=== PATIENT | female | born 1980 | race Caucasian/White ===

== ENCOUNTER → 2017-04-12 17:51 | Outpatient (CLI) | payer BC, SELFPAY ==
[2017-04-12 19:57] LABS: Group B Strep DNA By PCR POSITIVE (Negative); Probe Check PASS
== END ==
PROVIDERS: Family Provider Family Medicine; PCP Family Medicine; Visit Provider Obstetrics & Gynecology
DX: O09.529 Supervision of elderly multigravida, unspecified trimester (principal); Z3A.00 Weeks of gestation of pregnancy not specified
CPT/HCPCS: 87653

== ENCOUNTER → 2017-04-19 17:06 | Outpatient (CLI) | payer BC, SELFPAY | PROVIDERS: Family Provider Family Medicine; PCP Family Medicine; Visit Provider Obstetrics & Gynecology | DX: O09.529 Supervision of elderly multigravida, unspecified trimester (principal); Z3A.00 Weeks of gestation of pregnancy not specified | CPT/HCPCS: 87077; 87086; 87088; 87186 ==

== ENCOUNTER 2017-04-20 16:00 | Outpatient (CLI) | payer BC, SELFPAY ==
[2017-04-20 16:06] VITALS: BMI 33.5
[2017-04-20 16:42] LABS: Hematocrit 32.3 % (37-47); Hemoglobin 10.2 g/dl (12.0-15.0); Mean Corp Hgb Conc 31.6 g/gl (32-36); Mean Corpuscular Hgb 27.4 pg (27.0-32.0); Mean Corpuscular Volume 86.8 fL (81-99); Mean Platelet Vol. 11.3 fl (6.2-12.0); Platelet Count 206 K/mm3 (150-450); RBC Distribution Width CV 14.9 % (11.6-14.6); RBC Distribution Width SD 47.5 fl (35.1-43.9); Red Blood Count 3.72 M/mm3 (4.2-5.4); White Blood Count 7.9 K/mm3 (4.4-11.0)
[2017-04-20 16:43] LABS: Scan Indicated on CBC? Y/N NO
[2017-04-20 17:18] LABS: Protein, Urine (Random) 14.4 mg/dL (<11.9); Protein:Creat Ratio 113 mg/g CRE (0-200)
[2017-04-20 17:29] LABS: LDH 130 U/L (84-246)
[2017-04-20 17:35] LABS: AST(SGOT) 17 U/L (15-37); Alanine Aminotransfer ALT/SGPT 14 U/L (13-56); Creatinine, Serum 0.64 mg/dL (0.55-1.02); EST Glomerular Filtration Rate 111 mL/min (>60); Est Glom Filt Rate - Afr Amer 134 mL/min (>60); Estimated Creatinine Clearance 98.59 ml/min
[2017-04-20] MEDS: Acetaminophen 500 MG Tablet 1000 MG PO (19:55)
[2017-04-20 20:45] VITALS: RESP 18
--- NOTE | 2017-04-21 07:17 | OB.TRI.NOTE ---
History of Present Illness Date of Service: 04/20/17 Was patient seen by the physician?: Yes Reason For Visit: INCREASED BLOOD PRESSURE Date of Service: 04/20/17 Gestational age: 38 History of Present Illness: 36 yo 38 weeks presents with headache blurry vision and right sided facial numbness. symptoms except the headache have resolved. Home Medications Medication Instructions Recorded 1 tab PO QDAY 02/13/17 vitamin,calcium,ifuikxjw-lwxl-qwkhn acid tablet Allergies No Known Allergies Allergy (Unverified 04/19/17 11:00) - Pertinent Past Medical History Pertinent Past Medical History: anxiety PSH: two previous c sections Physical Exam Vitals: Vital Signs Resp 18 04/20/17 20:45 General: Alert, Oriented x3 Lungs: Normal air movement Abdomen: Soft, Non Tender Estimated gestational size: Appropriate for gestational size NST - FHR Rate Baby A Baseline: 120 Variability:: Moderate Accelerations:: 15 x 15 Decelerations:: None NST Reactive:: Yes FHR Category:: Category I Uterine Activity:: no regular Impression/Plan 36 yo 38 weeks headache- normal bps, preeclampsia panel WNL dc home preeclampsia precautions fu in office
--- NOTE | 2017-04-21 07:20 | OB.TRI.HP_ITS ---
History of Present Illness Date of Service: 04/20/17 Was patient seen by the physician?: Yes Reason For Visit: INCREASED BLOOD PRESSURE Date of Service: 04/20/17 Gestational age: 38 History of Present Illness: 36 yo 38 weeks presents with headache blurry vision and right sided facial numbness. symptoms except the headache have resolved. Home Medications Medication Instructions Recorded 1 tab PO QDAY 02/13/17 vitamin,calcium,dkfyjone-slce-mdrkr acid tablet Allergies No Known Allergies Allergy (Unverified 04/19/17 11:00) - Pertinent Past Medical History Pertinent Past Medical History: anxiety PSH: two previous c sections Physical Exam Vitals: Vital Signs Resp 18 04/20/17 20:45 General: Alert, Oriented x3 Lungs: Normal air movement Abdomen: Soft, Non Tender Estimated gestational size: Appropriate for gestational size NST - FHR Rate Baby A Baseline: 120 Variability:: Moderate Accelerations:: 15 x 15 Decelerations:: None NST Reactive:: Yes FHR Category:: Category I Uterine Activity:: no regular Impression/Plan 36 yo 38 weeks headache- normal bps, preeclampsia panel WNL dc home preeclampsia precautions fu in office
== END 2017-04-20 20:45 | disposition home or self-care (01) ==
LOC: WPOUT 16:02 → WP 16:03
PROVIDERS: Family Provider Family Medicine; PCP Family Medicine; Visit Provider Obstetrics & Gynecology
DX: O09.523 Supervision of elderly multigravida, third trimester (principal); O34.219 Maternal care for unspecified type scar from previous cesarean delivery; R03.0 Elevated blood-pressure reading, without diagnosis of hypertension; H53.8 Other visual disturbances; Z3A.38 38 weeks gestation of pregnancy
CPT/HCPCS: 36415; 59025; 59050; 82565; 82570; 83615; 84156; 84450; 84460; 84550; 85027; 99218; G0378

== ENCOUNTER 2017-05-01 06:00 | Inpatient (IN) | payer OTHER, MEDICAID, SELFPAY ==
[2017-05-01] VITALS (18 sets, daily range): BP systolic 106–141; BP diastolic 46–81; PULSE 56–87; RESP 13–18; TEMP 36–36.7; O2SAT 94–99; BMI 34.1
--- NOTE | 2017-05-01 06:02 | PCM.HP.OB ---
- Problem List (1) Anxiety and depression Status: Acute Comment: Celexa (2) History of delivery, antepartum Status: Acute Comment: plans repeat and btl (3) History of group B Streptococcus (GBS) infection Status: Acute Comment: gbs positive urine (4) , high-risk, maternal age 35+ multigravida Status: Acute Comment: PRR VON 05/07/17 girl LYNETTE yohana estevez (5) Rh negative state in antepartum period Status: Acute Comment: rhogam as indicated History Date of Admission: 05/01/17 Final VON: 05/07/17 Gestational age: 39 Weeks and 1 Days History of this : 36 yo @ 39w1d presents for RLTCS and BTL. She had a history of 2 previous c sections. she has had an uncomplicated Pertinent Past Medical History: anxiety and depression PSH: 2 previous c sections Allergies No Known Allergies Allergy (Unverified 04/27/17 10:23) celexa pnv Smoking Status: Never smoker Alcohol: None Drug Use: none Number of Fetus(es): 1 - 140s Review of Systems Constitutional: Denies: Chills, Fever, Weight Change HEENT: Denies: Head Aches, Sinus Congestion, Sinus Drainage Cardiovascular: Denies: Chest Pain, Palpitations Respiratory: Denies: Cough, Shortness of breath at rest, Sputum production Gastrointestinal: Denies: Abdominal Pain, Nausea, Vomiting Genitourinary: Denies: Dysuria Musculoskeletal: Denies: Joint Pain, Joint Tenderness Skin: Denies: Rash, Wounds Neurological: Denies: Numbness, Tingling, Focal weakness Psychiatric: Denies: Anxiety, Depression, Homicidal Ideations, Suicidal Ideations Hematologic/ Lymphatic: Denies: Easy Bruising, Easy Bleeding Physical Exam General: Alert, Oriented x3, No apparent distress Cardiovascular: Regular rate Lungs: Normal air movement Abdomen: Soft, Non Tender, Gravid Extremities:: No edema Estimated gestational size: Appropriate for gestational size Presentation: Cephalic Assessment/Plan 36 yo @ 39w1d presents for RLTCS ad BTL plan RLTCS and BTL routine care Rh negative
[2017-05-01] MEDS: Lactated Ringers 1,000 ML 999 ML IV (06:20)
[2017-05-01 06:43] LABS: Absolute Lymphocyte Count 1.62 X10^3/ul (0.83-4.51); Absolute Neutrophil Count 5.7 X10^3/uL (2.0-7.7); Basophil# 0.03 X10^3/uL; Basophil% 0.4 % (0-1); Eosinophil# 0.11 X10^3/uL; Eosinophils% 1.3 % (0-5); Hematocrit 32.6 % (37-47); Hemoglobin 10.5 g/dl (12.0-15.0); Lymphocyte # 1.62 X10^3/ul (4.0); Lymphocyte % 19.4 % (19-41); Mean Corp Hgb Conc 32.2 g/gl (32-36); Mean Corpuscular Hgb 28.2 pg (27.0-32.0); Mean Corpuscular Volume 87.6 fL (81-99); Monocyte# 0.78 X10^3/uL; Monocyte% 9.4 % (0-10); Neutrophil # 5.73 X10^3/uL (2.7-7.7); Neutrophil % 68.8 % (47-70); Platelet Count 206 K/mm3 (150-450); RBC Distribution Width CV 14.9 % (11.6-14.6); RBC Distribution Width SD 46.5 fl (35.1-43.9); Red Blood Count 3.72 M/mm3 (4.2-5.4); White Blood Count 8.3 K/mm3 (4.4-11.0)
[2017-05-01 06:47] LABS: POSITIVE COUNT NO; POSITIVE DIFFERENTIAL NO; POSITIVE MORPHOLOGY NO
[2017-05-01] MEDS: Lactated Ringers 1,000 ML 150 ML IV (07:00)
[2017-05-01] MEDS: Sodium Citrate/Citric Acid 30 ML UDC PO (07:06)
[2017-05-01] MEDS: Cefazolin 2 GM in 0.9% Normal Saline 100 ML IV (07:18)
[2017-05-01] MEDS: Oxytocin 30 units/NS 500 ml 30 UNITS/500 ML IV.SOLN 167 UNITS IV (07:56)
--- NOTE | 2017-05-01 07:56 | FALS_PTH ---
PATIENT: RASHAD PIÑA LOC: [facility] U#:[id number] AGE/SX: 36/F ROOM: WP004 RE05/01/[address]: Dr. Letty Booker MD : 1980 BED: 1 DIS: 05/03/2017 SPEC #: [id number] RECD: 05/01/17 10:50 STATUS: PREETI VALARIE #: [id number] DUANE: 05/01/17 07:[address]: Letty Booker DEPT: SURGICAL PATHOLOGY RECD BY: Candido Clark ENTERED: 05/01/17 12:23 SP TYPE: FALL TUBES OTHR DR: Dr. Edgardo Dc MD Tissues: Fallopian tube Procedures: Surgery Specimen Level II HEADER OPERATION: Repeat with tubal ligation PRE-OP DIAGNOSIS: Desired sterilization TISSUE SUBMITTED: Fallopian tubes, right tube with suture MICROSCOPIC DIAGNOSIS Right and left fallopian tubes, partial salpingectomies: Two complete segments of fallopian tubes with no pathologic change. AM:rg 3/7/18 MICROSCOPIC DESCRIPTION Slides are reviewed. GROSS DESCRIPTION Received is one container labeled with the patient's name and designated stitch right. The specimen consists of two tubular pieces of harden soft tissue. The right tube is identified by a suture. The right tube is inked black and measures 2.5 cm in length and 0.8 cm in diameter. The left tube measures 2.5 cm in length and 0.8 cm in diameter. The entire specimen is submitted in two cassettes as follows: 1 - right fallopian tube, 2 - left fallopian tube. The specimen will be serially sectioned at the time of embedding. / INES:graciela 05/01/17 TC:4 CPT: 28637 x2
[2017-05-01] MEDS: DiphenhydrAMINE 25 MG Capsule PO (11:36)
[2017-05-01] MEDS: 0.9% Saline Lock 10 ML Syringe IV ×2 (12:08→13:20)
[2017-05-01] MEDS: Ondansetron 4 MG/2 ML Vial IV (12:08)
[2017-05-01] MEDS: Ketorolac 30 MG/ML Syringe IV ×2 (13:21→22:04)
[2017-05-01] MEDS: Lactated Ringers 1,000 ML 100 ML IV ×2 (17:51→19:05)
[2017-05-02] VITALS (8 sets, daily range): BP systolic 108–135; BP diastolic 51–75; PULSE 76–86; RESP 16–18; TEMP 36.4–36.8; O2SAT 95–99
[2017-05-02] MEDS: Ketorolac 30 MG/ML Syringe IV ×4 (04:19→22:19)
[2017-05-02] MEDS: 0.9% Saline Lock 10 ML Syringe IV ×3 (04:21→16:13)
[2017-05-02 05:54] LABS: Hematocrit 27.7 % (37-47); Hemoglobin 8.8 g/dl (12.0-15.0); Mean Corp Hgb Conc 31.8 g/gl (32-36); Mean Corpuscular Hgb 28.1 pg (27.0-32.0); Mean Corpuscular Volume 88.5 fL (81-99); Mean Platelet Vol. 11.1 fl (6.2-12.0); Platelet Count 155 K/mm3 (150-450); RBC Distribution Width CV 14.9 % (11.6-14.6); RBC Distribution Width SD 47.1 fl (35.1-43.9); Red Blood Count 3.13 M/mm3 (4.2-5.4); White Blood Count 8.1 K/mm3 (4.4-11.0)
[2017-05-02 06:16] LABS: Scan Indicated on CBC? Y/N NO
--- NOTE | 2017-05-02 08:55 | OP.PCM_ITS ---
Problem List (1) Anxiety and depression Status: Acute Comment: Celexa (2) History of delivery, antepartum Status: Acute Comment: plans repeat and btl (3) History of group B Streptococcus (GBS) infection Status: Acute Comment: gbs positive urine (4) , high-risk, maternal age 35+ multigravida Status: Acute Comment: PRR VON 05/07/17 girl yohana Lieberman (5) Rh negative state in antepartum period Status: Acute Comment: rhogam as indicated Report of Operation Date of Procedure: 05/01/17 Pre-Operative Diagnosis: previous c section x 2 Post-Operative Diagnosis: same Surgery/Procedure Performed:: repeat low transverse csetion and bilateral tuba lligation via park[place] method Description of Surgical Findings:: normal uterus tubes ovaries staffing program manager: Angeline Reynaga Type of Anesthesia:: Spinal Specimen's removed: tubes Drains: butterfield Estimated Blood Loss (mL): 900 Fluids Replaced: crystalloid Description of Procedure: The patient is a at 39 weeks 1 day presented for repeat . Spinal anesthesia was placed without difficulty. Butterfield catheter was placed. The patient was placed in the dorsal supine position with leftward tilt. Patient was prepped and draped in the normal sterile fashion. Pfannenstiel skin incision was made with the scalpel and carried through to the underlying layer of fascia with the scalpel. Fascia was nicked in the midline and the incision extended laterally. The rectus bellies were dissected off superiorly and inferiorly with out complication both sharply and bluntly. The peritoneum was entered digitally. The incision was stretched and a low transverse uterine incision was made with the scalpel. The infant's head was delivered atraumatically followed by the anterior and posterior shoulders without complication the rest of the infant delivered. The cord was clamped and cut and the infant was handed off to awaiting nurse. The placenta was delivered spontaneously immediately following and was noted to be intact and have a three- vessel cord. The uterus was cleared of all clots and debris, and the incision was closed in a single layer closure using #1 Monocryl. The gutters were cleared of all clots and debris. The ovaries and fallopian tubes were noted to be within normal limits. Mid interstitial portion of the fallopian tube was elevated and 1 a hole in the mesosalpinx was made and the fallopian tube was tied off proximally and distally with chromic suture. The communicating portion of the fallopian tube was removed and excellent hemostasis was noted. The peritoneum was closed with 3-0 Monocryl in a running fashion. Fascia was closed with 0 PDS in a running fashion. Subcutaneous tissue was copiously irrigated and the skin was closed with 3-0 Monocryl in a subcuticular fashion. Steri-Strips and Mepilex dressing were applied without complication. Patient was taken to recovery in stable condition. Grafts/Implants Used: none - Complications none - Admit VTE Documentation VTE Present on Admission: No
[2017-05-02] MEDS: oxyCODONE 5 MG Tablet PO ×3 (09:03→20:10)
[2017-05-02] MEDS: Senna/Docusate Sodium 1 Tablet PO (09:03)
[2017-05-02 15:48] LABS: Pathology Specimen OB SEE PATHOLOGY REPORT
[2017-05-03 02:15] VITALS: BP 134/71; PULSE 64; RESP 16; TEMP 36.7; O2SAT 98
[2017-05-03] MEDS: Ketorolac 30 MG/ML Syringe IV ×2 (04:11→10:08)
[2017-05-03 08:36] VITALS: BP 130/77; PULSE 73; RESP 16; TEMP 36.1
[2017-05-03] MEDS: 0.9% Saline Lock 10 ML Syringe IV (10:06)
[2017-05-03] MEDS: oxyCODONE 5 MG Tablet PO (10:07)
--- NOTE | 2017-05-03 10:12 | DCINST_ITS ---
Discharge Diet: No Restrictions Discharge Activity: May Not Drive - for 2 weeks, May not drive while taking narcotic pain medications., May Shower, May Take a Tub Bath - in 7 days May resume sexual activity in: 4-6 weeks Lifting Restrictions: 20 pounds Additional Activity Instructions:: Nothing in the vagina for 4-6 weeks. You may return to work/school in 6 weeks. Call your doctor if your incision/area has: Continuous Slow Oozing, Sudden Increased Bleeding, Increased Pain/ Swelling, Increased Redness, Foul Smelling Discharge Call your doctor if you observe: Fever of 101 or Higher, Using more than one pad per hour - for 2 hours Suture Line Care: Avoid Pulling/Pushing, Avoid Pinching/Bending Cleanse incision/area with: Keep Dressing Clean & Dry Additional Instructions: If you experience any of the following, contact your healthcare provider. * Bleeding that soaks a pad every hour for 2 hours * Fever 100.4 or higher * Unrelieved incision or abdominal pain * Swelling, redness, discharge or bleeding from your incision or episiotomy site * Your incision begins to separate * Problems urinating (including inability to urinate or burning while urinating) . * Visual changes * Severe headache * Flu-like symptoms * Pain or redness in one of both of your breasts * Pain, warmth, tenderness or swelling in your legs, especially the calf area * Frequent nausea and vomiting * Symptoms of depression or anxiety If you experience any of the following, call 911 or go to the nearest Emergency Room. * Chest pain * Problems breathing * Seizure activity * Partial or complete paralysis of a body part, slurred speech, weakness or drooping of the face, or a sudden inability to walk or hold your balance Allergies/Adverse Reactions: Allergies No Known Allergies Allergy (Unverified 04/27/17 10:23) Medications to take at Discharge vitamin,calcium,amryilvf-rwjf-upwny acid tablet 1 tab PO QDAY 02/13/17 Oxycodone HCl/Acetaminophen [Percocet 5-325] 2 tablet PO Q4H PRN PRN 7 Days #28 tablet 05/03/17 The following prescriptions were given: Oxycodone HCl/Acetaminophen [Percocet 5-325] 2 tablet PO Q4H PRN PRN 7 Days #28 tablet PRN Reason: Moderate-Severe pain Follow-Up: Call to make an appointment with your doctor for an incision check in 1-2 weeks. You will also need a 6 week post- follow up appointment. Please Follow Up With: Letty Booker MD - Call to make an appointment for an incision check in 1-2 [phone] When: You will need a post- check in 6 weeks. Primary Care Physician: Edgardo Dc MD [Primary Care Provider] -
--- NOTE | 2017-05-04 03:35 | PCM.PN.OB ---
Subjective: late entry- seen 05/02/17 at 8 am doing well pain controlled some nausea last night - Physical Exam General: Alert, Oriented x3 Vital Signs Temp Pulse Resp BP Pulse Ox 97.0 F L 73 16 130/77 H 98 05/03/17 08:36 05/03/17 08:36 05/03/17 08:36 05/03/17 08:36 05/03/17 02:15 Oxygen Delivery Method Room Air Weight: 192 lb 9.6 oz Body Mass Index (BMI) 34.1 Intake and Output for Last 24 Hours 05/02/17 05/03/17 05/04/17 23:59 23:59 23:59 Intake Total 1992 Output Total 1300 / 1300 Balance 693 / 693 Assessment/Plan s/p RLTCS and BTL routine care pp
--- NOTE | 2017-05-04 03:37 | PCM.PN.OB ---
Subjective: late entry- seen 05/03/17 at 9 am doing well pain controlled no CP SOB N V - Physical Exam General: Alert, Oriented x3 Vital Signs Temp Pulse Resp BP Pulse Ox 97.0 F L 73 16 130/77 H 98 05/03/17 08:36 05/03/17 08:36 05/03/17 08:36 05/03/17 08:36 05/03/17 02:15 Oxygen Delivery Method Room Air Weight: 192 lb 9.6 oz Body Mass Index (BMI) 34.1 Intake and Output for Last 24 Hours 05/02/17 05/03/17 05/04/17 23:59 23:59 23:59 Intake Total 1992 Output Total 1300 / 1300 Balance 693 / 693 Assessment/Plan s/p RLTCS and BTL routine care pp
== END 2017-05-03 12:35 | disposition home or self-care (01) | DRG 765 ==
PROVIDERS: Admitting Provider Obstetrics & Gynecology; Family Provider Family Medicine; PCP Family Medicine; Visit Provider Obstetrics & Gynecology
DX: O99.344 Other mental disorders complicating childbirth (principal); O98.82 Other maternal infectious and parasitic diseases complicating childbirth; O34.211 Maternal care for low transverse scar from previous cesarean delivery; B95.1 Streptococcus, group B, as the cause of diseases classified elsewhere; F41.9 Anxiety disorder, unspecified; F32.9 Major depressive disorder, single episode, unspecified; Z3A.39 39 weeks gestation of pregnancy; Z37.0 Single live birth; O09.523 Supervision of elderly multigravida, third trimester; Z87.891 Personal history of nicotine dependence
CPT/HCPCS: 85025; 85027; 85461; 86850; 86900; 88302; 90384; 94762; 99218; J7120; A4216; G0378; J2405; J2790

== ENCOUNTER → 2017-11-27 10:33 | Outpatient (CLI) | payer OTHER, MEDICAID, SELFPAY ==
[2017-11-27 12:07] LABS: Absolute Lymphocyte Count 1.42 X10^3/ul (0.83-4.51); Basophil# 0.03 X10^3/uL; Basophil% 0.5 % (0-1); Eosinophil# 0.09 X10^3/uL; Eosinophils% 1.5 % (0-5); Hemoglobin 11.9 g/dl (12.0-15.0); Lymphocyte # 1.42 X10^3/ul (4.0); Lymphocyte % 23.9 % (19-41); Mean Corp Hgb Conc 30.5 g/gl (32-36); Mean Corpuscular Hgb 25.9 pg (27.0-32.0); Mean Platelet Vol. 10.3 fl (6.2-12.0); Monocyte# 0.43 X10^3/uL; Monocyte% 7.3 % (0-10); Neutrophil # 3.95 X10^3/uL (2.7-7.7); Neutrophil % 66.6 % (47-70); Platelet Count 323 K/mm3 (150-450); RBC Distribution Width CV 15.4 % (11.6-14.6); RBC Distribution Width SD 47.5 fl (35.1-43.9); Red Blood Count 4.59 M/mm3 (4.2-5.4); White Blood Count 5.9 K/mm3 (4.4-11.0)
[2017-11-27 12:10] LABS: POSITIVE COUNT NO; POSITIVE DIFFERENTIAL NO; POSITIVE MORPHOLOGY NO
[2017-11-27 12:33] LABS: Vitamin B12 570 pg/mL (211-911)
[2017-11-27 12:43] LABS: Ferritin 10 ng/mL (8-252); Iron 48 ug/dL (50-170); Thyroid Stim Hormone (TSH) 1.96 uIU/mL (0.358-3.74)
== END ==
PROVIDERS: Family Provider Family Medicine; PCP Family Medicine; Visit Provider Family Medicine
DX: R53.83 Other fatigue (principal); D64.9 Anemia, unspecified; L60.8 Other nail disorders
CPT/HCPCS: 36415; 82607; 82728; 83540; 84439; 84443; 85025

== ENCOUNTER 2018-01-04 06:02 | Emergency (ER) | payer OTHER, MEDICAID, SELFPAY ==
[2018-01-04 06:04] VITALS: BP 105/80; PULSE 72; RESP 16; TEMP 36.8; O2SAT 97; BMI 31.5
--- NOTE | 2018-01-04 06:15 | ED.VISSUMM ---
- ER Visit Summary Date of Service: 01/04/18 Chief Complaint: Back pain History of Present Illness: The patient is a 37 F with back pain since yesterday. It is worse when she turns twists or bends over. She is about to start her menstrual cycle and she has her usual abdominal cramping, her back pain is different. She denies any urinary symptoms. She had a tubal ligation and denies . She has no fever or chills. She has no radiation of the pain to her legs. No difficulty ambulating. Physical Examination: She does not appear in significant distress. She is lying comfortable on the bed Heart is regular lungs are clear abdomen is soft with minimal suprapubic tenderness. No guarding or rebound. Back examination reveals reproducible paraspinal tenderness which is worse with twisting and turning. She has normal Achilles and patellar reflexes. She has normal plantar flexion of both feet and dorsiflexion of both great toes. Emergency Department Course and Treatment: Urinalysis was done and unremarkable. Patient was treated with Toradol and Norflex. I do believe this is musculoskeletal, she has abdominal cramping but this is normal for this time of the month for her. She is benign abdomen and her back pain is quite reproducible. I will treat her symptomatically. Disposition: Discharge stable condition Impression: Lumbar strain This note was generated with [employer] dictation software. It may contain incorrect words, spelling, and punctuation that were not noted in review of the chart prior to signing ED Disposition - Plan for ED Patient: Disposition: Home or Assisted Living Chief Complaint: Flank Pain Instructions: Relieving Back Pain Prescriptions: Hydrocodone Bitart/Apap 5-325 [[place] 5MG-325MG] 1 tab PO Q4H PRN PRN 2 Days #10 tab PRN Reason: Pain Referrals: Edgardo Dc MD [Primary Care Provider] - 5-7 Days
--- NOTE | 2018-01-04 06:19 | ED.DCSUM_ITS ---
- ER Visit Summary Date of Service: 01/04/18 Chief Complaint: Back pain History of Present Illness: The patient is a 37 F with back pain since yesterday. It is worse when she turns twists or bends over. She is about to start her menstrual cycle and she has her usual abdominal cramping, her back pain is different. She denies any urinary symptoms. She had a tubal ligation and denies . She has no fever or chills. She has no radiation of the pain to her legs. No difficulty ambulating. Physical Examination: She does not appear in significant distress. She is lying comfortable on the bed Heart is regular lungs are clear abdomen is soft with minimal suprapubic tendern ess. No guarding or rebound. Back examination reveals reproducible paraspinal tenderness which is worse with twisting and turning. She has normal Achilles and patellar reflexes. She has normal plantar flexion of both feet and dorsiflexion of both great toes. Emergency Department Course and Treatment: Urinalysis was done and unremarkable. Patient was treated with Toradol and Norflex. I do believe this is musculoskeletal, she has abdominal cramping but this is normal for this time of the month for her. She is benign abdomen and her back pain is quite reproducible. I will treat her symptomatically. Disposition: Discharge stable condition Impression: Lumbar strain This note was generated with [employer] dictation software. It may contain incorrect words, spelling, and punctuation that were not noted in review of the chart prior to signing ED Disposition - Plan for ED Patient: Disposition: Home or Assisted Living Chief Complaint: Flank Pain Instructions: Relieving Back Pain Prescriptions: Hydrocodone Bitart/Apap 5-325 [[place] 5MG-325MG] 1 tab PO Q4H PRN PRN 2 Days #10 tab PRN Reason: Pain Referrals: Edgardo Dc MD [Primary Care Provider] - 5-7 Days
[2018-01-04] MEDS: Ketorolac 15 MG/ML Vial IM (06:25)
[2018-01-04 06:36] LABS: Bacteria 0 SEEN /hpf (None Seen); Mucous, Urine 0 SEEN /hpf (<or=2+); Red Blood Cells-Urine 0 SEEN /hpf (0-5); White Blood Cells 0 SEEN /hpf (0-5)
[2018-01-04 06:43] LABS: Glucose, Dipstick Normal (Normal); Ketone-Dipstick Negative (Negative); Leukocyte Esterase-Dipstick Negative /ul (Negative); Nitrite-Dipstick Negative (Negative); Occult Blood-Urine 25 /ul (Negative); Protein-Dipstick Negative (Negative); Specific Gravity, Urine 1.015 (1.002-1.030); Urine Bilirubin Dipstick Negative (Negative); Urine Urobilinogen Normal (Normal)
[2018-01-04 06:49] LABS: Color, Urine Yellow (Yellow); Urine Clarity Clear (Clear)
[2018-01-04 06:50] LABS: Squamous Epithelial Cells - UA 0-5 SEEN /hpf (5-10)
[2018-01-04] MEDS: oxyCODONE 5 MG Tablet PO (07:14)
[2018-01-04 07:15] VITALS: BP 95/55; PULSE 73; RESP 18; O2SAT 98
== END 2018-01-04 07:22 | disposition home or self-care (01) ==
PROVIDERS: Emergency Provider Emergency Medicine; Family Provider Family Medicine; PCP Family Medicine
DX: S39.012A Strain of muscle, fascia and tendon of lower back, initial encounter (principal); X58.XXXA Exposure to other specified factors, initial encounter; Y93.89 Activity, other specified; Y92.89 Other specified places as the place of occurrence of the external cause; Y99.8 Other external cause status
CPT/HCPCS: 81001; 96372; 99283

== ENCOUNTER → 2018-11-14 | Outpatient (CLI) | payer BC, SELFPAY ==
[2018-11-14 13:15] VITALS: BMI 33.1
[2018-11-14 15:51] LABS: Absolute Lymphocyte Count 2.19 X10^3/uL (0.83-4.51); Absolute Neutrophil Count 4.6 X10^3/uL (2.0-7.7); Basophil# 0.06 X10^3/uL; Basophil% 0.8 % (0-1); Eosinophil# 0.11 X10^3/uL; Eosinophils% 1.5 % (0-5); Hematocrit 40.5 % (37-47); Hemoglobin 12.1 g/dL (12.0-15.0); Lymphocyte # 2.19 X10^3/ul (4.0); Lymphocyte % 29.2 % (19-41); Mean Corp Hgb Conc 29.9 g/dL (32-36); Mean Corpuscular Hgb 24.8 pg (27.0-32.0); Mean Corpuscular Volume 83.2 fL (81-99); Mean Platelet Vol. 10.7 fl (6.2-12.0); Monocyte# 0.56 X10^3/uL; Monocyte% 7.5 % (0-10); NRBC Flagged by Analyzer 0 % (0-5); Neutrophil # 4.56 X10^3/uL (2.7-7.7); Neutrophil % 60.6 % (47-70); Platelet Count 366 K/mm3 (150-450); RBC Distribution Width CV 14.6 % (11.6-14.6); RBC Distribution Width SD 44.3 fl (35.1-43.9); Red Blood Count 4.87 M/mm3 (4.2-5.4); White Blood Count 7.5 K/mm3 (4.4-11.0)
[2018-11-14 16:12] LABS: Hemoglobin A1c 5.6 % (4.2-6.3)
[2018-11-14 16:14] LABS: Vitamin B12 550 pg/mL (211-911)
[2018-11-14 17:00] LABS: Ferritin 7 ng/mL (8-252); Iron 39 ug/dL (50-170); Thyroid Stim Hormone (TSH) 1.49 uIU/mL (0.358-3.74)
== END | disposition home or self-care (01) ==
LOC: BFHLAB 13:19
PROVIDERS: Family Provider Family Medicine; PCP Family Medicine; Visit Provider Family Medicine
DX: G62.9 Polyneuropathy, unspecified (principal)
CPT/HCPCS: 36415; 82607; 82728; 82746; 83036; 83540; 84443; 85025

== ENCOUNTER → 2020-08-05 | Outpatient (CLI) | payer MEDICAID, SELFPAY ==
[2020-08-05 14:20] VITALS: BMI 32.3
[2020-08-10 13:22] LABS: HPV APTIMA, High Risk Negative (Negative)
== END | disposition home or self-care (01) ==
LOC: LABSPEC 16:10
PROVIDERS: PCP Family Medicine; Referring Provider Nurse Practitioner Women's Health; Visit Provider Nurse Practitioner Women's Health
DX: Z12.4 Encounter for screening for malignant neoplasm of cervix (principal)
CPT/HCPCS: 87624; 88175; G0145

== ENCOUNTER → 2020-08-17 13:42 | Outpatient (CLI) | payer MEDICAID, SELFPAY ==
[2020-08-05 14:20] VITALS: BMI 32.3
--- NOTE | 2020-08-17 13:48 | BI_ITS ---
MAMMOGRAPHY - BILATERAL SCREENING 3-D TOMOSYNTHESIS REASON FOR EXAM: Female, 39 years old. Annual screening mammogram. PERTINENT HISTORY: No significant family history. TECHNIQUE: 2-D mammograms and 3-D Tomosynthesis of the breast (s) were performed. CAD was performed. COMPARISON: None. Baseline examination. FINDINGS: The breast composition is heterogeneously dense that can obscure small breast masses. Scattered benign calcifications are seen. No dense spiculated masses or suspicious microcalcifications are identified. No architectural distortion is identified. There is no skin thickening or retraction. Normal lymph nodes bilaterally. There has been no significant change since the prior study. BI/SCRN MAMM (CAD)W/LIBRADO BILAT IMPRESSION: No mammographic signs of malignancy. Routine yearly mammograms recommended. ASSESSMENT CATEGORY: BIRADS Category 2: Benign. A letter regarding these results will be sent to the patient by the facility within 30 days. FOLLOW UP RECOMMENDATION: Yearly follow up mammogram recommended. (A) Approximately 10% of breast cancers are not detected by mammography. A normal mammogram should not delay biopsy of a clinically suspicious abnormality. Electronically Signed: Cuauhtemoc Nur MD at 12:28 EDT , Service support ,
--- NOTE | 2020-08-17 13:48 | US_ITS ---
STUDY: ULTRASOUND TRANSVAGINAL CLINICAL: Female, 39 years old. bleeding TECHNIQUE: Transvaginal COMPARISON: None. FINDINGS: Normal uterine size measuring 11.3 x 7.0 x 5.1 cm in maximal craniocaudal dimension. Uterus is anteflexed. There is a hypoechoic region within the posterior mild mixture measuring 1.6 x 1.8 x 1.2 cm. Additional small myometrial anechoic region. Small myometrial anechoic region consistent with small uterine cyst is also noted measuring 6 mm. Normal endometrial thickness measuring 11 mm. There are no endometrial masses, and there is no fluid in the endometrial cavity. Normal uterine cervix. Normal right ovary, measuring 3.8 x 2.6 x 2.3 cm. Right ovary demonstrates a mildly complex cyst measuring 1.9 x 1.6 x 1.4 cm. Normal left ovary, measuring 3.3 x 2.7 x 1.8 cm. There are multiple follicles without a dominant cyst. There is no free fluid in the pelvis. Polycystic ovary disease: No. US/Transvaginal Non- IMPRESSION: Small uterine fibroid mildly complex right ovarian cyst as above. Otherwise no evidence of acute pelvic process. Electronically Signed: Hayse Zaldivar DO at 8:12 EDT , Service support ,
--- NOTE | 2020-08-17 13:48 | US_ITS ---
STUDY: ULTRASOUND TRANSVAGINAL CLINICAL: Female, 39 years old. bleeding TECHNIQUE: Transvaginal COMPARISON: None. FINDINGS: Normal uterine size measuring 11.3 x 7.0 x 5.1 cm in maximal craniocaudal dimension. Uterus is anteflexed. There is a hypoechoic region within the posterior mild mixture measuring 1.6 x 1.8 x 1.2 cm. Additional small myometrial anechoic region. Small myometrial anechoic region consistent with small uterine cyst is also noted measuring 6 mm. Normal endometrial thickness measuring 11 mm. There are no endometrial masses, and there is no fluid in the endometrial cavity. Normal uterine cervix. Normal right ovary, measuring 3.8 x 2.6 x 2.3 cm. Right ovary demonstrates a mildly complex cyst measuring 1.9 x 1.6 x 1.4 cm. Normal left ovary, measuring 3.3 x 2.7 x 1.8 cm. There are multiple follicles without a dominant cyst. There is no free fluid in the pelvis. Polycystic ovary disease: No. US/Pelvic (Non ) IMPRESSION: Small uterine fibroid mildly complex right ovarian cyst as above. Otherwise no evidence of acute pelvic process. Electronically Signed: Hayes Zaldivar DO at 8:12 EDT , Service support ,
== END ==
PROVIDERS: PCP Family Medicine; Referring Provider Nurse Practitioner Women's Health; Visit Provider Nurse Practitioner Women's Health
DX: Z12.31 Encounter for screening mammogram for malignant neoplasm of breast (principal); N92.0 Excessive and frequent menstruation with regular cycle
CPT/HCPCS: 76830; 76856; 77063; 77067

== ENCOUNTER → 2020-08-31 | Outpatient (CLI) | payer MEDICAID, SELFPAY ==
--- NOTE | 2020-08-31 | EMB_PTH ---
PATIENT: RASHAD PIÑA LOC: [facility] U#:[id number] AGE/SX: 40/F ROOM: RE08/31/[address]: Dr. Letty Booker MD : 1980 BED: DIS: 08/31/2020 SPEC #: [id number] RECD: 08/31/20 15:23 STATUS: PREETI VALARIE #: [id number] DUANE: 08/31/20 00:[address]: Letty Booker DEPT: SURGICAL PATHOLOGY RECD BY: Doug Moss ENTERED: 09/01/20 08:56 SP TYPE: ENDOM BX/C STEFANIE DR: Dr. Edgardo Dc MD Tissues: Endometrium, NOS Procedures: Surgery Specimen Level IV HEADER OPERATION: Endometrial biopsy PRE-OP DIAGNOSIS: Abnormal uterine bleeding TISSUE SUBMITTED: Endometrial biopsy MICROSCOPIC DIAGNOSIS Endometrium, biopsy: Proliferative endometrium with focal glandular breakdown. AM:graciela 09/02/2020 MICROSCOPIC DESCRIPTION Slides are reviewed. GROSS DESCRIPTION Received is one container labeled with the patient's name and not further designated. The specimen consists of multiple irregular fragments of pink-harden soft tissue that in aggregate measure 2 x 1 x 0.2 cm. The specimen is totally submitted in one cassette. / AM:graciela 09/01/20 TC:5 CPT: 18415
[2020-08-31 13:43] VITALS: BMI 32.1
== END | disposition home or self-care (01) ==
LOC: LABSPEC 15:28
PROVIDERS: PCP Family Medicine; Visit Provider Obstetrics & Gynecology
DX: N93.9 Abnormal uterine and vaginal bleeding, unspecified (principal)
CPT/HCPCS: 88305

== ENCOUNTER 2020-09-28 14:38 | Observation (INO) | payer MEDICAID, SELFPAY ==
[2020-08-31 13:43] VITALS: BMI 32.1
[2020-09-27 13:44] LABS: Absolute Lymphocyte Count 1.75 X10^3/uL (0.83-4.51); Absolute Neutrophil Count 4.8 X10^3/uL (2.0-7.7); Basophil# 0.05 X10^3/uL; Basophil% 0.7 % (0-1); Eosinophil# 0.11 X10^3/uL; Eosinophils% 1.5 % (0-5); Hematocrit 38.2 % (37-47); Hemoglobin 11.7 g/dL (12.0-15.0); Lymphocyte # 1.75 X10^3/ul (0.83-4.51); Lymphocyte % 24.2 % (19-41); Mean Corp Hgb Conc 30.6 g/dL (32-36); Mean Corpuscular Hgb 25.5 pg (27.0-32.0); Mean Corpuscular Volume 83.2 fL (81-99); Mean Platelet Vol. 10.4 fl (6.2-12.0); Monocyte# 0.54 X10^3/uL; Monocyte% 7.5 % (0-10); NRBC Flagged by Analyzer 0 % (0-5); Neutrophil # 4.76 X10^3/uL (2.7-7.7); Neutrophil % 65.8 % (47-70); Platelet Count 373 K/mm3 (150-450); RBC Distribution Width CV 14.8 % (11.6-14.6); RBC Distribution Width SD 44.4 fl (35.1-43.9); Red Blood Count 4.59 M/mm3 (4.2-5.4); White Blood Count 7.2 K/mm3 (4.4-11.0)
[2020-09-27 14:04] LABS: Magnesium 2.1 mg/dL (1.6-2.6)
[2020-09-27 14:05] LABS: Prothrombin Time (Protime)PT. 12.7 SECONDS (11.7-14.9)
[2020-09-27 14:06] LABS: Partial Thromboplast Time 28.9 Seconds (24.1-36.2)
[2020-09-27 14:24] LABS: Thyroid Stim Hormone (TSH) 1.83 uIU/mL (0.358-3.74)
--- NOTE | 2020-09-27 18:52 | HP.PCM_ITS ---
History and Physical Date of Admission: 09/28/20 Vital Signs 08/31/20 13:32 08/31/20 13:43 Height 5 ft 3 in Weight: 181 lb BMI 32.3 32.1 BP 102/80 Intake Visit Reasons: Consult per Chief Complaint: consult Explosive Expert Required: No Is patient in pain?: No Allergies No Known Allergies Allergy (Verified 08/05/20 14:21) Medications ferrous sulfate [Iron] 325 mg PO 01/04/18 [History Confirmed 08/31/20] multivitamin [Multiple Vitamins] 1 ea PO DAILY 01/04/18 [History Confirmed 08/31/20] cyanocobalamin (vitamin B-12) 1,000 mcg capsule 1,000 mcg PO DAILY 08/31/20 [History Confirmed 08/31/20] Is last menstrual period known: No Post menopausal: No Patient : No : No PFSH Medical History (Updated 08/31/20 @ 14:[address] Letty Booker MD) Anxiety and depression delivery delivered Surgical History (Updated 08/31/20 @ 14:[address] Letty Booker MD) Tubal ligation status Family History Father Diabetes Mother Diabetes Social History Smoking Status: Never smoker alcohol intake: never substance use type: does not use caffeine: Yes what type of physical activity do you participate in: none seatbelt use: always do you feel safe at home: Yes additional social history: - Vik [facility] Consult per Details: RASHAD ADAIR is a 40 year old who presents for severe, painful, heavy menses with some irregularity to cycle timing. She has tried an IUD and failed to have an improvement. On ultrasound she has an enlarged uterus 11 cm and has a fibroid in it. she is missing 2 days at least a month for work due to the heavy menses, and she takes midol to relieve cramping. Female Reproductive History Cycle Length: 21-35 Bleeding Duration: 5 Frequency of changing protection: less than an hour Questions: sexually active: Yes, dyspareunia: Yes and PCB: No Pregancy History 4 Elective abortions Hx Para 3 Spontaneous abortions Hx # Term Pregnancies Ectopic pregnancies Hx # Pregnancies Multiple births # of living children 3 Past Pregnancies Del. Date Name GA/Weeks Outcome Route Bth Weight Infant Gen Labor Lgth Anesthesia Del Locatn Provider FOB Unknown Simona - step daughter 03/22/06 José Miguel 40 live - full term 8lbs 6oz Male [facility] 08/02/09 Karine 39 live - full term 8lbs 12oz Female [facility] Bare 05/01/17 Kinza live - full term 8 lbs Female [facility] Dr. Ade CARRASCO Const Constitutional: Denies fatigue, weight gain or weight loss ENT ENT: Reports system reviewed and no additional complaints, except as documented Cardio Card: Denies chest pain Resp Resp: Denies cough or dyspnea on exertion GI GI: Reports abdominal pain (left lower side) and cramping; Denies bloating, change in stool character, constipation or vomiting : Reports as per HPI and pelvic pain; Denies difficulty voiding, nipple discharge, urinary frequency, urinary incontinence, urinary urgency, vaginal discharge or vaginal pruritus Musc Musc: Denies arthralgias, back pain or muscle weakness Skin Skin/Breast: Denies alopecia, change in hair, dry skin, breast mass, breast pain, breast skin changes or nipple discharge Neuro Neuro: Reports system reviewed and no additional complaints, except as documented Psych Psych: Reports system reviewed and no additional complaints, except as documented Endo Endo: Denies cold intolerance, excessive sweating, heat intolerance or polydipsia Tony/Lymph Hematologic/Lymphatic: Denies easy bleeding, Denies easy bruising and Denies lymphadenopathy Exam Const General: cooperative, healthy appearing, no acute distress and well developed Orientation: alert, oriented to person and oriented to place [facility] Head: normal to inspection Ears: hearing grossly normal bilaterally and external ears normal Nose: external nose normal and nares normal Face and sinus: normal facial exam Neck Neck: normal visual inspection Thyroid: thyroid normal Lymphatic: no lymphadenopathy noted Chest Chest palpation & inspection: normal inspection of the chest Breast inspection: normal inspection of the breasts and normal inspection of the axillae Breast palpation: normal palpation of the breasts, normal palpation of the axillae and no axillary lymphadenopathy Resp Effort & Inspection: normal respiratory effort Auscultation: clear to auscultation bilaterally Cardio Rate: regular rate Rhythm: regular rhythm Heart Sounds: S1 normal and S2 normal GI Inspection: normal to inspection and non-distended Palpation: soft, no masses and nontender Rectal Exam: deferred General: bladder normal to palpation External Female Exam: normal external appearance and normal appearance of the urethra Urethra: normal appearance of the urethra and normal palpation Speculum Exam - Vagina: normal appearance of the vagina and normal vaginal discharge Speculum Exam - Cervix: normal appearance of the cervix Bimanual Exam- Vagina & Uterus: normal bimanual exam, uterine size normal, bladder normal to palpation, non-tender and nodular (anteriorly) Bimanual Exam- Adnexa, other: normal adnexae, no masses, normal and non-tender Pelvic Support: normal Musc Other: gross motor intact no deficits, full bilateral strength Skin General: no rashes or lesions noted Neuro General: patient alert and patient oriented x3 Motor: muscle tone normal throughout Extrem General: normal to inspection and no pedal edema Psych Appearance: grossly normal Mental Status: mental status grossly normal Affect: normal affect Speech and Movement: speech and movement normal Office Procedures Endometrial Biopsy Endometrial Biopsy Test: Yes Not Applicable Consent Signed: Yes Time out checklist: patient, procedure, site marked/identified, positioning of patient, supplies available, allergies confirmed and team agrees on procedure Time out time: 14:00 tenaculum used: Yes dilator used: No Details: Cervix prepped with betadine and pipelle inserted into uterus without complication. Specimen obtained and sent to lab for analysis. All instruments removed from vagina without complications. Excellent hemostasis noted. Coding Level of Care Code Off vis,est,level 5 Diagnoses Menorrhagia with irregular cycle N92.1 H/O tubal ligation Z98.51 delivery delivered O82 CPT Codes Endometrial Biopsy (69500) Assessment and Plan Assessment and Plan (1) H/O tubal ligation: (2) delivery delivered: (3) Menorrhagia with irregular cycle: Status: Acute Comment: failed IUD and OCP increase migraine. plan LAVHBS possible cystoscopy Orders: Orders: Endometrial Biopsy Today Thyroid Stim Hormone (TSH) Today CBC W/Diff, Automated Today Plan - Dr. Letty Booker MD: After discussing the patient's diagnosis and treatment plan options, patient wishes to proceed with surgical management. I have discussed with the patient the risks, benefits, and alternatives of the procedure which include but are not limited to risks of anesthesia, bleeding, infection, possible damage to bowel, bladder, or surrounding vasculature which could lead to additional surgery to evaluate any complications. Patient agrees to procedure and wishes to proceed. ACOG/uptodate references given for additional information regarding procedure. UPDATE- I have seen the patient and performed any clinically relevant updates to the history and physical exam. Letty Booker MD
[2020-09-28] VITALS (14 sets, daily range): BP systolic 100–128; BP diastolic 47–75; PULSE 61–83; RESP 16; TEMP 35.8–37.1; O2SAT 93–100; BMI 31.8
[2020-09-28 08:20] LABS: Internal QC Validated? YES +Cl - CLEAR BKGD; Pregnancy, Urine Negative Negative
[2020-09-28] MEDS: Acetaminophen 500 MG Tablet 1000 MG PO ×3 (08:43→22:00)
[2020-09-28] MEDS: Celecoxib 200 MG Capsule 400 MG PO (08:44)
[2020-09-28] MEDS: dexAMETHasone 10 MG/ML Vial 8 MG IV (08:44)
[2020-09-28] MEDS: Enoxaparin 40 MG/0.4 ML Syringe SC (08:44)
[2020-09-28] MEDS: Phenazopyridine 95 MG Tablet 190 MG PO (08:44)
[2020-09-28] MEDS: Scopolamine 1mg/72hr Patch 1 PATCH TD (08:45)
[2020-09-28] MEDS: Gabapentin 600 MG Tablet PO (08:45)
[2020-09-28] MEDS: Lactated Ringers 1,000 ML 40 ML IV ×2 (08:46→14:06)
[2020-09-28 09:06] LABS: Bedside Glucose 86 mg/dL (70-110)
[2020-09-28] MEDS: Cefazolin 2 GM in 0.9% Normal Saline 100 ML IV (09:35)
--- NOTE | 2020-09-28 09:50 | HYST_PTH ---
PATIENT: RASHAD PIÑA LOC: MS3 U#:[id number] AGE/SX: 40/F ROOM: [facility] RE09/28/[address]: Dr. Letty Booker MD : 1980 BED: 1 DIS: 09/29/2020 SPEC #: [id number] RECD: 09/28/20 13:29 STATUS: PREETI SHEPPARD #: [id number] DUANE: 09/28/20 09:[address]: Letty Booker DEPT: SURGICAL PATHOLOGY RECD BY: Evelyn Hester ENTERED: 09/28/20 13:43 SP TYPE: HYSTERECT OTHR DR: Dr. Edgardo Dc MD Tissues: Uterus, NOS Procedures: Surgery Specimen Level V HEADER OPERATION: ERAS, hysterectomy, LAVH, bilateral salpingectomy, cysto PRE-OP DIAGNOSIS: Menorrhagia with irregular cycle TISSUE SUBMITTED: Uterus, bilateral fallopian tubes, right ovary MICROSCOPIC DIAGNOSIS Uterus, bilateral fallopian tubes and right ovary, hysterectomy, bilateral salpingectomy, right oophorectomy: Cervix - no pathologic diagnosis. Endometrium ? proliferative endometrium. Myometrium ? intramural leiomyoma (1.5 cm in greatest dimension). - Focal adenomyosis. Bilateral fallopian tubes - no pathologic diagnosis. Right ovary ? endometriosis. - Physiologic follicular cysts. SJ:rg 09/29/2020 COMMENT Please make reference to previous specimen ([id number]) endometrium, biopsy with diagnosis of ?proliferative endometrium with focal glandular breakdown.? MICROSCOPIC DESCRIPTION Slides are reviewed. GROSS DESCRIPTION Received in fixative is one container labeled with the patient's name and designated uterus. The specimen consists of a morcellated uterus received in nine fragments ranging in size from 3 to 9.5 cm. The presumed uterus fragments weigh in aggregate 218 gm. A distinct endocervical canal is not identified. The presumed ectocervix is grossly unremarkable. Two detached fallopian tube fragments are identified. One measures 3 cm in length and 1 cm in diameter. The other measures 4 cm in length and 1 cm in average diameter. A glistening, cystic ovary which is light harden in color is present measuring 4 x 3 x 2.5 cm. Serial sections of this ovary reveal multiple cysts filled with clear to bloody fluid. The cysts range in size from 0.2 to 2.2 cm in greatest dimension. A distinct endometrial cavity is not identified. The presumed endometrium is light harden, velvety and glistening. The myometrium measures 2.5 cm in average thickness and contains a smooth, glistening, rubbery nodule measuring 1.5 cm and grossly resembling a?leiomyoma. [employer] sections are submitted in 12 cassettes as follows: 1 - cervix, 2-5 - endometrium/myometrium, 6 - myometrial mass, 7 - one fallopian tube, 8 - the other fallopian tube, 912??ovary. / AM:graciela 09/28/20 TC:5 CPT: 35381
[2020-09-28] MEDS: Ondansetron 4 MG/2 ML Vial IV (12:17)
--- NOTE | 2020-09-28 13:02 | PCM.OPRPT ---
Problems Associated Problem List Diagnoses (1) Menorrhagia with irregular cycle: Report of Operation Date of Procedure: 09/28/20 Pre-Operative Diagnosis: see PL Post-Operative Diagnosis: same Surgery/Procedure Performed:: LAVHBS right oophorectomy Description of Surgical Findings:: Dense adhesions right ovary adherent to the posterior uterine wall. Obliteration of the anterior cul-de-sac. Thickening of the posterior cul-de-sac. Vesicouterine adhesions omental to anterior abdominal wall adhesions aerial photogrammetrist: Jamaal Daugherty Type of Anesthesia: General Special Medications: Sukh Specimen's removed: uterus, tubes right ovary Drains: butterfield Estimated Blood Loss (mL): 300 Fluids Replaced: crystalloid Description of Procedure: Patient received preoperative antibiotics and SCDs were on preoperatively. Patient was taken back to the operating room and placed in the dorsal lithotomy position. General anesthesia was induced and patient was prepped and draped in normal sterile fashion. Uterine manipulator was placed inside the uterus and Butterfield catheter placed in the bladder. The umbilicus was grasped with towel clamps and an intraumbilical incision was made after injecting with quarter percent Marcaine and a Veress needle entered into the abdomen confirmed to be intra-abdominal with a low opening pressure. Abdomen was insufflated with CO2 gas and the Veress needle removed and the 5 mm trocar was placed under direct visualization without complication. Right and left lower quadrants were transilluminated and injected with quarter percent Marcaine and 5 mm ports placed under direct visualization. Pelvis was well visualized see operative findings for additional information. Bilateral fallopian tubes were identified and transected with the LigaSure device across the mesosalpinx to the level of the utero-ovarian ligament which was also transected with the LigaSure device. Dense scar tissue was noted which was taken down sharply and bluntly with LigaSure device as well as hydrodissection. The broad ligament was opened up by transecting the round ligament bilaterally and skeletonizing the uterine vessels bilaterally and creating a bladder flap using the LigaSure device. The right ovary was completely adherent to the posterior uterine corpus and was dissected off. The uterine arteries were transected bilaterally with good visualization of the bladder and the ureters were seen to be inferior lateral to the operative area. Attention was then paid to the vaginal portion of the procedure and the cervix was grasped with Lorena clamps and circumferentially injected with dilute vasopressin. A circumferential incision was made and the vaginal mucosa was mobilized off posteriorly and the cul-de-sac entered into sharply and a longneck speculum placed. The anterior cul-de-sac was then identified and entered into sharply. The uterosacral ligaments were clamped cut and suture ligated with 0 Monocryl bilaterally followed by the cardinal ligaments which were clamped cut and suture ligated bilaterally with 0 Monocryl. The uterus serially descended and was removed with morcellation. Pelvic sidewall pedicles were checked and noted to have excellent hemostasis. Posterior peritoneum was closed with 2-0 Vicryl. The vaginal mucosa was reapproximated incorporating the posterior peritoneum. The cystoscopy was then performed and bilateral ureteral strong spray was noted and the bladder was noted to have no abnormality or lesions seen. Butterfield catheter was replaced and then attention paid to the abdominal portion of the procedure again. Vaginal cuff was reapproximated using 0 Vicryl [id number] sutures. Excellent hemostasis was noted. The pelvis and cul-de-sac were well visualized and no significant active bleeding noted but some raw areas were seen on the peritoneum and therefore Sukh was applied. Pressure was taken down and the areas visualized and noted of excellent hemostasis. All ports were removed under direct visualization without complication and the abdomen was desufflated of air. The instruments were removed from the abdomen and the vaginal sweep was negative. Port sites on the abdomen were closed with 4-0 Monocryl interrupted sutures and Steri's and windows were applied. She was awoken and taken recovery in stable condition. Grafts/Implants Used: none Complications none Admit VTE Documentation VTE Present on Admission: No VTE Mechan Device Prophylaxis: SCD's VTE Pharm Prophylaxis ordered?: Yes Multi Select Codes Urinary/Genital Urinary/Genital CPT Codes: 19549 Cystoscopy and 09111 LAVH+BS/O <250gr Uterus
--- NOTE | 2020-09-28 13:11 | EX.PCM.DISCH ---
Documented by User: Dr. Letty Booker MD 09/28/20 13:31 Discharge Instructions Diet Discharge Diet: No restrictions Activity May resume sexual activity in: 6 weeks Weight Bearing Status: Full weight bearing Dressing / Incision Call your doctor if your incision/area has: Continuous Slow Oozing, Sudden Increased Bleeding, Increased Pain/ Swelling, Increased Redness and Foul Smelling Discharge Call your doctor if you observe: Fever of 101 or Higher, Using more than 1 pad per hour, Shortness of breath, Chest pain and Uncontrolled pain Suture Line Care: Avoid Pulling/Pushing and Avoid Pinching/Bending Remove Dressing in: 1 week (if present) Cleanse incision/area with: Soap & Water and Keep Dressing Clean & Dry Follow Up Care Please Follow Up With: Letty Booker MD When: Call to make an appointment with your doctor for a postop visit in 2 and 6 weeks. Test Results: Test results from this visit will be discussed in further detail at your follow-up appointment, if applicable. Discharge Plan Admission Admit Date/Time: 09/28/20 14:38 Primary Reason for Your Visit: hysterectomy Attending Provider: Letty Booker Primary Care Provider: Edgardo Dc Discharge Orders/Prescriptions Prescriptions: New naproxen 250 MG tablet 250 - 500 mg PO Q8H PRN PRN (Reason: MILD PAIN) Qty: 30 RF: 1 oxycodone-acetaminophen [Endocet] 5-325 mg tablet 1 tab PO Q4H PRN (Reason: pain) 7 Days Qty: 20 RF: 0 Continued cyanocobalamin (vitamin B-12) 1,000 mcg capsule 1,000 mcg PO DAILY RF: 0 ferrous sulfate [Iron (ferrous sulfate)] 325 MG tablet 325 mg PO DAILY RF: 0 Referrals / Follow Up: Edgardo Dc MD [Primary Care Provider] - Letty Booker MD [STAFF PHYSICIAN] - Disposition Disposition (needs filled in before D/C Order can be placed): Home, Self Care Documented by User: Gisela Shirley REIMBURSEMENT AUDITOR, REIMBURSEMENT AUDITOR-C 09/29/20 08:02 Discharge Plan Admission Admit Date/Time: 09/28/20 14:38 Primary Reason for Your Visit: hysterectomy Attending Provider: Letty Booker Primary Care Provider: Edgardo Dc Discharge Orders/Prescriptions Prescriptions: New naproxen 250 MG tablet 250 - 500 mg PO Q8H PRN PRN (Reason: MILD PAIN) Qty: 30 RF: 1 oxycodone-acetaminophen [Endocet] 5-325 mg tablet 1 tab PO Q4H PRN (Reason: pain) 7 Days Qty: 20 RF: 0 Continued cyanocobalamin (vitamin B-12) 1,000 mcg capsule 1,000 mcg PO DAILY RF: 0 ferrous sulfate [Iron (ferrous sulfate)] 325 MG tablet 325 mg PO DAILY RF: 0 Referrals / Follow Up: Edgardo Dc MD [Primary Care Provider] - Letty Booker MD [STAFF PHYSICIAN] - Disposition Disposition (needs filled in before D/C Order can be placed): Home, Self Care
[2020-09-28] MEDS: oxyCODONE 5 MG Tablet PO ×2 (15:17→19:27)
[2020-09-28] MEDS: Lactated Ringers 1,000 ML 70 ML IV (15:17)
[2020-09-28 16:53] LABS: Hematocrit 37.3 % (37-47); Hemoglobin 11.1 g/dL (12.0-15.0); Mean Corp Hgb Conc 29.8 g/dL (32-36); Mean Corpuscular Hgb 25.7 pg (27.0-32.0); Mean Corpuscular Volume 86.3 fL (81-99); Platelet Count 354 K/mm3 (150-450); RBC Distribution Width SD 47.6 fl (35.1-43.9); Red Blood Count 4.32 M/mm3 (4.2-5.4); White Blood Count 12.7 K/mm3 (4.4-11.0)
[2020-09-28] MEDS: Ketorolac 30 MG/ML Syringe IV (20:06)
[2020-09-28] MEDS: Docusate Sodium 100 MG Capsule PO (21:59)
[2020-09-29 02:36] VITALS: BP 102/56; PULSE 65; RESP 18; TEMP 36.8; O2SAT 94
[2020-09-29] MEDS: Ketorolac 30 MG/ML Syringe IV ×2 (02:47→08:56)
[2020-09-29] MEDS: Acetaminophen 500 MG Tablet 1000 MG PO ×2 (02:47→09:04)
[2020-09-29] MEDS: Lactated Ringers 1,000 ML 70 ML IV (02:51)
[2020-09-29 06:35] VITALS: BP 109/53; PULSE 74; RESP 16; TEMP 36.8; O2SAT 94
[2020-09-29 07:27] VITALS: O2SAT 93
--- NOTE | 2020-09-29 07:58 | PN.OBGYN_ITS ---
Subjective Subjective patient recovering well, denies CP, SOB, N, or V. tolerating adequate po, and pain is controlled with oral medications. Objective Data Objective Data Vital Signs: Vital Signs Temp Pulse Resp BP Pulse Ox 98.3 F 74 16 109/53 L 94 09/29/20 06:35 09/29/20 06:35 09/29/20 06:35 09/29/20 06:35 09/29/20 06:35 Oxygen Flow Rate (L/min) 6 Oxygen Delivery Method Room Air Weight: 179 lb 14.355 oz Body Mass Index (BMI) 31.8 Intake & Output: Intake and Output for Last 24 Hours 09/27/20 09/28/20 09/29/20 23:59 23:59 23:59 Intake Total 2064.33 / 2064.33 809.67 / 809.67 Output Total 2350 / 2350 1400 / 1400 Balance -285.67 / -285.67 -590.33 / -590.33 Lab / Micro Data Result Diagrams: 09/28/20 16:40 Labs: Laboratory Results - last 24 hr 09/28/20 08:15: Urine Test Negative 09/28/20 09:03: POC Glucose 86 09/28/20 16:40: WBC 12.7 H, RBC 4.32, Hgb 11.1 L, Hct 37.3, MCV 86.3, MCH 25.7 L , MCHC 29.8 L, RDW Std Deviation 47.6 H, RDW Coeff of Mitra 15.0 H, Plt Count 354, MPV 10.0 Micro: Microbiology 09/27/20 14:42 Interface Orders SARS-CoV-2 Antigen (Rapid) - Final Physical Exam Const alert, oriented x3 and no apparent distress Resp normal respiratory effort GI soft to palpation and non-distended Inspection: incision other (dressing dry and intact) Narrative: Minimal drainage on peripad Bladder / Kidney Exam: catheter in place Assessment & Plan (1) S/P laparoscopic assisted vaginal hysterectomy (LAVH): COMMENT: lavh bs and ro, dense adhesions enlarged uterus adenomyosis PLAN: patient is s/p LAVH BS right oopherectomy POD 1 1. routine ERAS protocol postop care- increase ambulation, encourage oral intake and oral control of pain. lovenox and scds for dvt prophylaxis, remove butterfield and once voiding QS and patient stable for discharge to home.
[2020-09-29] MEDS: Docusate Sodium 100 MG Capsule PO (08:55)
[2020-09-29] MEDS: Enoxaparin 40 MG/0.4 ML Syringe SC (08:55)
[2020-09-29] MEDS: 0.9% Saline Lock 10 ML Syringe IV ×2 (08:56→11:24)
[2020-09-29 09:00] VITALS: PULSE 68
[2020-09-29] MEDS: Cyanocobalamin 500 MCG Tablet 1000 MCG PO (09:03)
[2020-09-29] MEDS: Ferrous Sulfate 325 MG Tablet PO (12:34)
[2020-09-29 12:40] VITALS: BP 114/48; PULSE 72; RESP 16; TEMP 36.6; O2SAT 99
== END 2020-09-29 12:36 | disposition home or self-care (01) ==
LOC: SDC 16:31 → MS3 16:31
PROVIDERS: Anesthesiology; Admitting Provider Obstetrics & Gynecology; PCP Family Medicine; Referring Provider Obstetrics & Gynecology; Visit Provider Obstetrics & Gynecology
PROC: 0UT9FZZ Resection of Uterus, Via Natural or Artificial Opening With Percutaneous Endoscopic Assistance (ICD-10-PCS; CPT 58552; principal; 2020-09-28 09:25)
DX: N92.1 Excessive and frequent menstruation with irregular cycle (principal); D25.1 Intramural leiomyoma of uterus
CPT/HCPCS: 00940; 58552; 36415; 81025; 82962; 83735; 84443; 85025; 85027; 85610; 85730; 86850; 86900; 86901; 87426; 88307; 94762; 96372; 96374; 96376; 99218; 99251; C9803; J7120; A4216; G0378; G0463; J2405

== ENCOUNTER → 2020-10-11 | Outpatient (CLI) | payer MEDICAID, SELFPAY ==
[2020-10-11 14:09] VITALS: BMI 31.8
== END | disposition home or self-care (01) ==
LOC: LABSPEC 15:26
PROVIDERS: PCP Family Medicine; Referring Provider Obstetrics & Gynecology; Visit Provider Obstetrics & Gynecology
DX: R30.0 Dysuria (principal)
CPT/HCPCS: 87086; 87088

== ENCOUNTER 2024-04-02 00:09 | Emergency (ER) | payer MEDICAID, SELFPAY ==
[2024-04-02 00:10] VITALS: BP 105/51; PULSE 85; RESP 17; TEMP 36.5; O2SAT 100; BMI 30.7
[2024-04-02 00:13] VITALS: BP 105/51; PULSE 84; RESP 19; TEMP 36.5; O2SAT 100
--- NOTE | 2024-04-02 00:28 | RAD_ITS ---
PROCEDURE: CHEST PA AND LATERAL REASON FOR EXAM: Nausea, vomiting and diarrhea. Chest pain. TECHNIQUE: Frontal and lateral views of the chest. COMPARISON: None. FINDINGS: Lungs are well aerated. No focal airspace consolidation, pneumothorax or pleural effusion is seen. Remaining lung markings otherwise appears clear. Heart size and great vessels are within normal limits. The osseous thorax appears intact. EKG wires overlie the chest. Prior cholecystectomy. RAD/Chest PA and Lateral IMPRESSION: No acute cardiopulmonary process identified. Reading Location: [id number]
--- NOTE | 2024-04-02 00:28 | EKG12_ITS ---
Test Reason : DYSRHYTHMIA Blood Pressure : */* mmHG Vent. Rate : 75 BPM Atrial Rate : 75 BPM P-R Int : 114 ms QRS Dur : 80 ms QT Int : 356 ms P-R-T Axes : 52 14 39 degrees QTcB Int : 397 ms Normal sinus rhythm Normal ECG Confirmed by MARITA REYES, EDGAR ([id number]), editor magazine RASHAD SHRESTHA ([id number]) on 04/03/2024 7:10:40 AM Referred By: Confirmed By: EDGAR KIRKLAND MD
[2024-04-02 00:39] LABS: Absolute Lymphocyte Count 1.12 X10^3/uL (0.83-4.51); Absolute Neutrophil Count 9.9 X10^3/uL (2.0-7.7); Basophil# 0.04 X10^3/uL; Basophil% 0.3 % (0-1); Eosinophils% 0.8 % (0-5); Hemoglobin 14.7 g/dL (12.0-15.0); Lymphocyte # 1.12 X10^3/ul (0.83-4.51); Lymphocyte % 9.5 % (19-41); Mean Corpuscular Hgb 27.8 pg (27.0-32.0); Mean Platelet Vol. 10.9 fl (6.2-12.0); Monocyte# 0.65 X10^3/uL; Monocyte% 5.5 % (0-10); NRBC Flagged by Analyzer 0 % (0-5); Neutrophil # 9.86 X10^3/uL (2.7-7.7); Neutrophil % 83.5 % (47-70); Platelet Count 339 K/mm3 (150-450); RBC Distribution Width CV 14.3 % (11.6-14.6); RBC Distribution Width SD 45.5 fl (35.1-43.9); Red Blood Count 5.29 M/mm3 (4.2-5.4); White Blood Count 11.8 K/mm3 (4.4-11.0)
[2024-04-02] MEDS: Ondansetron 4 MG/2 ML Vial IV (00:41)
[2024-04-02] MEDS: 0.9% Normal Saline (1000mL) 1,000 ML 999 ML IV (00:41)
[2024-04-02] MEDS: LORazepam 2 MG/ML Syringe 1 MG IV (00:42)
[2024-04-02 01:00] LABS: AST(SGOT) 43 U/L (15-37); Alanine Aminotransfer ALT/SGPT 30 U/L (13-56); Albumin, Serum 3.9 g/dL (3.2-5.0); Alkaline Phosphatase 82 U/L (45-117); Anion Gap 10 (5-15); BUN 13 mg/dL (7-18); Calcium,Total 9.9 mg/dL (8.5-10.1); Chloride 106 mmol/L (98-107); EST Glomerular Filtration Rate 64 mL/min (>60); Est Glom Filt Rate - Afr Amer 77 mL/min (>60); Estimated Creatinine Clearance 70.61 ml/min; Globulin 4.7 g/dL (2.2-4.2); Glucose 124 mg/dL (74-106); Lipase 30 U/L (13-75); Potassium 4.4 mmol/L (3.5-5.1); Protein, Total 8.6 g/dL (6.4-8.2); Sodium Level 136 mmol/L (136-145); Troponin-I HS 5 pg/mL (3.0-54.0)
[2024-04-02 01:13] VITALS: BP 103/43; PULSE 91; RESP 17; TEMP 37.2; O2SAT 99
--- NOTE | 2024-04-02 01:32 | EX.ED.DYSGE1 ---
HPI History of Present Illness Chief Complaint: Nausea/Vomiting/Diarrhea Informant: patient Narrative Narrative: Patient is a 43-year-old female with past medical history of anxiety and depression and migraine headache. She states her daughter has been sick with nausea vomiting and diarrhea. She reports this evening her stomach began to feel off and then she proceeded to have bouts of vomiting and diarrhea. She states after having this she noticed some pain in the upper mid abdomen/lower chest. She states her father does have a history of heart attack in his 60s to 70s. She states that she does not have a history of cardiovascular disease but with her father's history and now having pain in the lower chest/upper abdomen she was concerned that this could be cardiac in nature and therefore comes in for evaluation [facility] Medical History Wears glasses Low iron Injury of back Migraine headache Heartburn Non-smoker History of stress test delivery delivered Menorrhagia with irregular cycle Anxiety and depression Home Medications ?Medication ?Instructions ?Recorded ?Last Taken ?Type ondansetron 4 mg disintegrating 4 mg PO TID PRN nausea and 04/02/24 Unknown Rx tablet vomiting #21 tabs Allergy/AdvReac Type Severity Reaction Status Date / Time No Known Allergies Allergy Verified 04/02/24 00:10 Family History Father Diabetes Mother Diabetes Surgical History Hx laparoscopic cholecystectomy S/P laparoscopic assisted vaginal hysterectomy (LAVH) Tubal ligation status Social History Smoking Status: Never smoker alcohol intake: never substance use type: does not use caffeine: Yes what type of physical activity do you participate in: none seatbelt use: always do you feel safe at home: Yes additional social history: - Vik Adair DANILO ROS ED Constitutional Constitutional ED: Denies chills or fever(s) Eyes Eyes: Denies change in vision ENT ENT ED: Denies sore throat Cardiovascular Cardiovascular: Reports chest pain; Denies palpitations or racing heartbeat Respiratory/Chest Respiratory/Chest: Denies cough or dyspnea Gastrointestinal Gastrointestinal: Reports abdominal pain, diarrhea, nausea and vomiting Genitourinary Genitourinary ED: Denies dysuria Musculoskeletal Musculoskeletal: Denies myalgias Integumentary Denies rash Neurologic Neurologic: Denies headache(s) Psychiatric Psychiatric: Reports anxiety Hematologic/Lymphatic Hematologic/Lymphatic: Denies easy bleeding or easy bruising EXAM Physical Exam Const Vital Signs: 04/02/24 00:10 04/02/24 00:13 04/02/24 01:13 Temperature 97.7 F L 97.7 F L 98.9 F Temperature Source Oral Oral Oral Pulse Rate 85 84 91 Respiratory Rate 17 19 H 17 Blood Pressure 105/51 L 105/51 L 103/43 L Blood Pressure Mean 69 69 63 Pulse Ox 100 100 99 Oxygen Delivery Method Room Air Room Air Room Air 04/02/24 01:38 Temperature 98.1 F Temperature Source Pulse Rate 91 Respiratory Rate 14 Blood Pressure 116/61 Blood Pressure Mean 79 Pulse Ox 98 Oxygen Delivery Method Positive well nourished and well developed General Appearance ED: well developed; Negative for pallor HEENT Reports moist mucous membranes HEENT Narrative: No tongue or lip swelling no oral lesions no airway edema or compromise No secondary findings in the posterior pharynx to suggest infection Eyes PERRL and EOMs intact bilaterally General Eye ED: Negative for scleral icterus Neck supple Neck Narrative: No nuchal rigidity or meningeal signs Chest Wall Chest Narrative: No bony deformity or crepitance or subcutaneous emphysema noted Resp normal respiratory effort and clear to auscultation bilaterally Cardio regular rate and regular rhythm Rate: other Other Details: Regular rate and rhythm without murmurs rubs or gallops Radial and carotid pulses are equal and symmetric GI non-distended and no masses GI Narrative: Soft and nondistended with hyperactive bowel sounds. There is mild pain with palpation in the midepigastric region without voluntary guarding or rigidity. No pulsatile mass or fluid wave Auscultation: hyperactive bowel sounds Palpation: soft Back/Spine no CVA tenderness Extremity normal to inspection Extremity Narrative: No asymmetric edema no pitting edema negative Homans' sign bilaterally Neuro oriented x3, CN's II-XII intact bilaterally and no sensory deficits noted Sensorium / Orientation: alert Motor Exam: strength 5/5 throughout Psych Mood & Affect: anxious Skin no rashes or lesions noted and skin turgor normal General Skin Exam: Negative for jaundice or pallor MDM MDM MDM Narrative Medical decision making narrative: Patient presented to the ER with stable vitals and a soft nonsurgical abdomen so I felt no need for an emergent CT scan. She reported sick contacts at home with similar symptoms. She has not developed chest discomfort while after her bouts of vomiting and it is more in the upper abdomen than true chest. Risk factors of cardiovascular disease are low as well but based on her family history of heart disease in her father there is concern this could be ACS versus acute pancreatitis versus viral stomach infection such as norovirus or rotavirus. Secondary to this an EKG was obtained which revealed no ischemic or dysrhythmia changes. Blood work shows no signs of acute kidney injury elevation to the lipase to suggest pancreatitis or clinically significant electrolyte abnormality. After hydration and symptomatic care in the ER the patient's vital stabilized and her symptoms resolved. She remained in normal sinus rhythm on the monitor and her troponin was also normal going against ACS. Therefore at this time I feel her symptoms are related to a viral stomach infection and this was worsened by anxiety but as overall workup is negative with stabilization/improvement of vitals and resolution of symptoms she is otherwise safe for discharge History & Record Review Discussion w/independent historian: Patient and Family Lab Data Attestation: I reviewed the patient's lab results. Labs: Laboratory Results - last 24 hr 04/02/24 00:28 WBC 11.8 H RBC 5.29 Hgb 14.7 Hct 46.0 MCV 87.0 MCH 27.8 MCHC 32.0 RDW Std Deviation 45.5 H RDW Coeff of Mitra 14.3 Plt Count 339 MPV 10.9 Immature Gran % (Auto) 0.400 Neut % (Auto) 83.5 H Lymph % (Auto) 9.5 L [place] % (Auto) 5.5 Eos % (Auto) 0.8 Baso % (Auto) 0.3 Absolute Neuts (auto) 9.9 H Absolute Lymphs (auto) 1.12 Nucleated RBC % 0 Sodium 136 Potassium 4.4 Chloride 106 Carbon Dioxide 21.0 Anion Gap 10 BUN 13 Creatinine 1.00 Estim Creat Clear Calc 70.61 Est GFR (MDRD) Af Amer 77 Est GFR (MDRD) Non-Af 64 BUN/Creatinine Ratio 13.0 Glucose 124 H Calcium 9.9 Total Bilirubin 0.30 Direct Bilirubin 0.10 AST 43 H ALT 30 Alkaline Phosphatase 82 Troponin I High Sens 5 Total Protein 8.6 H Albumin 3.9 Globulin 4.7 H Lipase 30 Radiography Diagnostic Testing: Clinical Impression(s) from Imaging Studies Chest X-Ray 04/02/24 00:28 IMPRESSION: No acute cardiopulmonary process identified. Reading Location: [facility] Chest x-ray as interpreted by the emergency medicine physician reveals no acute infiltrate pneumothorax or pleural effusion Discharge Plan Triage Chief Complaint: Nausea/Vomiting/Diarrhea ED Provider: Francisco Cerna Dx/Rx/DC Orders Clinical Impression: Nausea vomiting and diarrhea, Anxiety and depression Instructions: ED Gastroenteritis, Viral (Adult) Prescriptions: New ondansetron 4 mg tablet,disintegrating 4 mg PO TID PRN (Reason: nausea and vomiting) Qty: 21 0RF Primary Care Provider: Heidi Ventura Referrals: Heidi Ventura MD [Primary Care Provider] - Activity Restrictions/Additional Instructions: Your history and workup is consistent with a viral stomach infection. This can last anywhere from 12 hours to 10 days with the average being 3 days. Keep yourself well-hydrated and use the Zofran as directed to control further bouts of nausea and vomiting. Return to the ER should you have any further concerns Print Language: [place] Disposition Disposition: Home, Self Care Discharge Date/Time: 04/02/24 02:03
[2024-04-02 01:38] VITALS: BP 116/61; PULSE 91; RESP 14; TEMP 36.7; O2SAT 98
== END 2024-04-02 02:03 | disposition home or self-care (01) ==
PROVIDERS: Emergency Provider Emergency Medicine; PCP Family Medicine Sports Medicine; Visit Provider Emergency Medicine
DX: R11.2 Nausea with vomiting, unspecified (principal); F32.A Depression, unspecified; F41.9 Anxiety disorder, unspecified; R19.7 Diarrhea, unspecified; R07.9 Chest pain, unspecified
CPT/HCPCS: 71046; 80048; 80076; 83690; 84484; 85025; 93005; 96361; 96374; 96375; 99284; A4216; J2405